=== PATIENT | female | born 1955 | race Asian ===

== ENCOUNTER 2022-04-22 14:41 | Emergency (ER) | payer OTHER ==
[~2022-04-22] VITALS: Ht 152.4 cm; Wt 58.1 kg
[2022-04-22] MEDS ORDERED: IV NORMAL SALINE 1000 ML BAG IV ONE (15:15)
[2022-04-22] MEDS ORDERED: ACETAMINOPHEN ES 500 MG TABLET PO ONE (15:15)
[2022-04-22 15:28] LABS: *BILIRUBIN,URIN NEGATIVE (NEGATIVE); *BLOOD, URINE NEGATIVE (NEGATIVE); *CLARITY,URINE CLEAR (CLEAR); *COLOR,URINE YELLOW (YELLOW); *KETONES,URINE NEGATIVE (NEGATIVE); *UROBILINOGEN,URINE 0.2 E.U./dl (NORMAL); LEUKOCYTE ESTERASE ,URINE NEGATIVE (NEGATIVE); NITRITE, URINE NEGATIVE (NEGATIVE); UGLUCOSE NEGATIVE (NEGATIVE)
[2022-04-22 15:33] LABS: HEMATOCRIT 34.8 % (31.2-41.9); MEAN CORPUSCULAR VOLUME 91.5 fL (75.5-95.3); PLATELET COUNT (AUTO) 213 K/uL (179-408)
[2022-04-22] MEDS ORDERED: ACETAMINOPHEN ES 500 MG TABLET ONE (15:35)
[2022-04-22 15:43] LABS: CARBON DIOXIDE 29 mmol/L (21-32); CHLORIDE 107 mmol/L (98-107); CREATININE 0.7 mg/dL (0.6-1.3); GLUCOSE 109 mg/dL (74-106); POTASSIUM 4.1 mmol/L (3.5-5.1); UREA NITROGEN, BLOOD 25 mg/dL (7-18)
[2022-04-22 15:55] LABS: ALANINE AMINOTRANSFERASE 47 U/L (14-59); ALKALINE PHOSPHATASE 60 U/L (50-136); ASPARTATE AMINOTRANSFERASE 30 U/L (15-37); BILIRUBIN,DIRECT 0.1 mg/dL (0.0-0.2); BILIRUBIN,TOTAL 0.1 mg/dL (0.2-1.0)
--- NOTE | 2022-04-22 16:44 | NUR ---
IV removed. Catheter intact and site benign. Pressure and 4x4 gauze applied to site. No bleeding noted.
--- NOTE | 2022-04-22 16:44 | NUR ---
Patient discharged to home in stable condition. Written and verbal after care instructions given. Patient verbalizes understanding of instructions. Stressed follow up or return to ER for worsening s/s.
== END 2022-04-22 16:57 | disposition home or self-care (01) ==
LOC: ER 14:41
DX: R55 Syncope and collapse (principal)
CPT/HCPCS: 99284; 96360; 80076; 80048; 81003; 85025; 84484; 36415; 93005; J7040; A4663; A9150